=== PATIENT | female | born 2000 | race Caucasian/White ===

== ENCOUNTER 2021-06-10 13:24 | Emergency (ER) | payer OTHER ==
[~2021-06-10] VITALS: Ht 162.6 cm; Wt 69.0 kg
[2021-06-10 14:09] VITALS: BP 119/75
[2021-06-10] MEDS ORDERED: LIDOCAINE-MPF 1%, 5ML INFIL ONE (14:30)
[2021-06-10] MEDS ORDERED: DIPH,PERTUSS(ACELL),TET VAC/PF 0.5 ML IM-VACC ONE ×2 (14:30→15:29)
--- NOTE | 2021-06-10 15:25 | NUR ---
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
[2021-06-10] MEDS ORDERED: LIDOCAINE-MPF 1%, 5ML ONE (15:29)
--- NOTE | 2021-06-10 15:45 | NUR ---
Isra GRADY at bedside
--- NOTE | 2021-06-10 15:54 | NUR ---
Isra GRADY at bedside to perform wound care
[2021-06-10] MEDS ORDERED: BACITRACIN ZINC OINT 500U/GM, 0.9 GM ONE (16:17)
--- NOTE | 2021-06-10 16:21 | NUR ---
EMT at bedside to dress wound
== END 2021-06-10 16:32 | disposition home or self-care (01) ==
LOC: ED 16:26
DX: S61.411A Laceration without foreign body of right hand, initial encounter (principal); W26.9XXA Contact with unspecified sharp object(s), initial encounter; Y93.89 Activity, other specified; Y92.009 Unspecified place in unspecified non-institutional (private) residence as the place of occurrence of the external cause; Y99.8 Other external cause status
CPT/HCPCS: 12002; 90471; 90715; 99283

== ENCOUNTER 2021-06-22 17:36 | Emergency (ER) | payer OTHER ==
[~2021-06-22] VITALS: Ht 162.6 cm; Wt 68.0 kg
[2021-06-22 17:48] VITALS: BP 115/76
== END 2021-06-22 18:02 | disposition home or self-care (01) ==
LOC: ED 17:45
DX: S61.411D Laceration without foreign body of right hand, subsequent encounter (principal); X58.XXXD Exposure to other specified factors, subsequent encounter
CPT/HCPCS: 99282